=== PATIENT | male | born 1965 | race American Indian/Alaskan Native ===

== ENCOUNTER 2017-08-01 10:29 | Emergency (ER) | payer BC ==
[2017-08-01 10:36] VITALS: BP 142/92; PULSE 82; RESP 20; TEMP 98; O2SAT 100
--- NOTE | 2017-08-01 11:05 | ED PDOC ---
HPI: CCC, URI, Sore Throat Time Seen by Provider: 08/01/17 10:39 Chief Complaint (Nursing): Cough, Cold, Congestion Chief Complaint (Provider): URI History Per: Patient Additional Complaint(s): Pt is a 52 yo female, no PMH, presents to ED with complaints of productive cough x 2 weeks. denies fevers. medicating with nyquil over the counter with minimal relief. Past Medical History Reviewed: Nursing Documentation, Vital Signs Vital Signs: Last Vital Signs Temp 98.0 F 08/01/17 10:35 Pulse 82 08/01/17 10:35 Resp 20 08/01/17 10:35 BP 142/92 H 08/01/17 10:35 Pulse Ox 100 08/01/17 11:05 - Medical History PMH: No Chronic Diseases - Surgical History Surgical History: No Surg Hx - Family History Family History: States: Unknown Family Hx - Living Arrangements Living Arrangements: With Family - Social History Current smoker - smoking cessation education provided: No Alcohol: None Drugs: Denies - Home Medications Home Medications: Ambulatory Orders Medication Instructions Recorded Methylprednisolone [Medrol Dose 4 mg PO DAILY #21 mg 08/01/17 Pack (21 tabs)] Promethazine HCl/Codeine 5 ml PO HS #80 ml 08/01/17 [Prometh-Codein 6.25-10 mg/5 ml] - Allergies Allergies/Adverse Reactions: Allergies Allergy/AdvReac Type Severity Reaction Status Date / Time No Known Allergies Allergy Verified 08/01/17 10:54 Review of Systems ROS Statement: Except As Marked, All Systems Reviewed And Found Negative ENT: Positive for: Nose Congestion Respiratory: Positive for: Cough Physical Exam - Reviewed Nursing Documentation Reviewed: Yes Vital Signs Reviewed: Yes - Physical Exam Appears: Positive for: Well, Non-toxic, No Acute Distress Head Exam: Positive for: ATRAUMATIC, NORMAL INSPECTION, NORMOCEPHALIC Skin: Positive for: Normal Color, Warm, DRY Eye Exam: Positive for: EOMI, Normal appearance, PERRL ENT: Positive for: Normal ENT Inspection Neck: Positive for: Normal, Painless ROM Cardiovascular/Chest: Positive for: Regular Rate, Rhythm Respiratory: Positive for: CNT, Normal Breath Sounds Gastrointestinal/Abdominal: Positive for: Normal Exam, Bowel Sounds, Soft Back: Positive for: Normal Inspection Extremity: Positive for: Normal ROM Neurologic/Psych: Positive for: Alert, Oriented - ECG O2 Sat by Pulse Oximetry: 100 Medical Decision Making Medical Decision Making: CXR: NAD, as read by CORDELL Disposition - Clinical Impression Clinical Impression: Upper respiratory infection - Patient ED Disposition Is Patient to be Admitted: No - Disposition Disposition: Routine/Home Disposition Time: 13:25 Condition: STABLE Prescriptions: Methylprednisolone [Medrol Dose Pack (21 tabs)] 4 mg PO DAILY #21 mg Promethazine HCl/Codeine [Prometh-Codein 6.25-10 mg/5 ml] 5 ml PO HS #80 ml Instructions: Upper Respiratory Infection (ED) Forms: [email or web address] (Maltese) - POA Present On Arrival: None
--- NOTE | 2017-08-01 12:02 | RAD ---
HISTORY: cough x 2 weeks COMPARISON: No prior. TECHNIQUE: Chest PA and lateral FINDINGS: LUNGS: No active pulmonary disease. PLEURA: No significant pleural effusion identified. No pneumothorax apparent. CARDIOVASCULAR: Normal. OSSEOUS STRUCTURES: No significant abnormalities. VISUALIZED UPPER ABDOMEN: Normal. OTHER FINDINGS: None. IMPRESSION: No active disease.
== END 2017-08-01 12:40 | disposition home or self-care (01) ==
LOC: H.ER 10:29
DX: J06.9 Acute upper respiratory infection, unspecified (principal)